=== PATIENT | male | born 1990 | race Two or more races ===

== ENCOUNTER 2024-08-26 20:02 | Emergency (ER) | payer MEDICAID ==
[~2024-08-26] VITALS: Ht 175.3 cm; Wt 93.0 kg
[2024-08-26] MEDS ORDERED: ACETAMINOPHEN ES 500 MG TABLET ONE ×2 (22:24→22:25)
[2024-08-26] MEDS ORDERED: ONDANSETRON HCL/PF 4 MG/2 ML VIAL ONE (22:29)
[2024-08-26] MEDS: IV NS 0.9% 500 ML BAG IV ONE (22:39)
[2024-08-26] MEDS: ACETAMINOPHEN ES 500 MG TABLET PO ONE (22:39)
[2024-08-26] MEDS: ONDANSETRON HCL/PF 4 MG/2 ML VIAL IVP ONE (22:39)
[2024-08-27 00:20] VITALS: BP 128/66; TEMP 100.9; O2SAT 99
== END 2024-08-26 22:50 | disposition home or self-care (01) ==
LOC: ER 20:15
DX: J06.9 Acute upper respiratory infection, unspecified (principal); B34.9 Viral infection, unspecified; R50.9 Fever, unspecified; R11.2 Nausea with vomiting, unspecified
CPT/HCPCS: 99283; 96374; 96361; J2405; J7040